=== PATIENT | male | born 1995 | race Caucasian/White ===

== ENCOUNTER 2018-08-24 18:40 | Emergency (ER) | payer BC ==
[2018-08-24] MEDS ORDERED: KETOROLAC 30 MG/1 ML SDV IVP ONE (19:19)
[2018-08-24] MEDS ORDERED: CEPHALEXIN 500 MG CAP PO ONE (19:29)
[2018-08-24] MEDS ORDERED: SULFAMETHOX/TMP 800/160 MG 1 TAB PO ONE (19:30)
[2018-08-24] MEDS ORDERED: ACETAMINOPHEN 500 MG TAB PO ONE (19:56)
[2018-08-24 20:07] VITALS: BP 139/84
--- NOTE | 2018-08-24 20:17 | EDPHY ---
HPI/HX/ROS/PE/MDM Narrative: CLINICAL IMPRESSION: Left buttock abscess with associated cellulitis ASSESSMENT/PLAN: Patient is a 22-year-old male with a history of recurrent buttock abscesses who presents for concerns of acute left buttock abscess. Patient is afebrile and not toxic appearing, mild distress. Physical exam reveals approximately 4 cm area of fluctuance on the inferior left buttock with approximately 8 cm of surrounding erythema and induration; rectal exam with no pain and no fluctuance. He had no constitutional symptoms to suggest systemic infection and he had no findings to suggest rectal abscess, fistula, pilonidal disease or necrotizing skin infection; history and physical examination is most consistent with left buttock abscess with associated cellulitis. The abscess was anesthetized, incised and drained as mentioned in the procedure note, a small wick left in place. He was given Toradol and after incision and drainage reported significant improvement of his discomfort. He is currently in town from [place] for an inpatient alcohol rehabilitation program. He will continue local wound care and warm compress, 1st dose of Keflex and Bactrim given in the emergency department which he will continue for the next 10 days. He was noted to have mildly elevated heart rate on arrival to the emergency department which I suspect is secondary to pain, he has had no constitutional symptoms or findings to suggest sepsis; heart rate normalized while in the emergency department. He is well established with his PCP however secondary to his inpatient rehabilitation is unable to get home. I have given him a surgical referral for Dr. Almodovar to be seen in the next 48 hr, if he is unable to get in to General surgery to be seen he will return to the emergency department for a wound check. On repeat examination and prior to discharge the patient is well-appearing, sitting in his bed in no acute distress. Return precautions discussed- he will return for fever, redness, swelling, warmth, or streaking around the wound, new lesions, extremity swelling, pain out of proportion or for any other new, worsening or worrisome symptoms. Patient verbalizes understanding and he is in agreement with plan. Case discussed with and patient seen by Dr. Levin. DIFFERENTIAL DX: Abscess, cellulitis, necrotizing skin infection, deep space infection, rectal abscess, fistula, pilonidal disease ED PROCEDURES: Procedure: Abscess drainage. The patient's abscess was located on the inferior left buttock. I obtained verbal consent from the patient to drain the abscess who was informed about the possibility of bleeding and pain. The abscess was incised with an 11 blade and approximately 15 cc of thick, tenacious, purulent drainage was expressed. I irrigated the wound and placed some packing. The patient tolerated the procedure well. The procedure was performed by myself. ED COURSE: 7:30 p.m.: Case discussed with Dr. Levin, she also evaluated this patient. 8:25 p.m.: On repeat examination the patient is sitting up in bed, reports that he is feeling so much better. Feels ready to be discharged home. CHIEF COMPLAINT: Left buttock pain and possible abscess HPI: The patient is a 22-year-old male with a history of her current buttock abscesses who presents with possible buttock abscess. Patient reports approximately 3 days ago he started to notice of small bump on his left buttock , this has significantly increased in size and has become much more painful. He states it feels very similar to when he has had abscesses in the past. He reports approximately 15-20 episodes of abscesses requiring incision and drainage. He has been seen by his primary care provider in [place], Dermatology and General surgery in [place]. It has been several months since his last episode. It has not been draining. He denies any fevers, chills , nausea, vomiting, abdominal pain, testicular pain or testicular swelling. Patient has had some diarrhea however denies any melena or hematochezia. He does not have any pain with defecation. No history of rectal abscess or fistula. PMH: Recurrent buttock abscess Pertinent Past Surgical History: Denies Family History: Not contributory Social History: Alcohol abuse, denies marijuana or cigarette smoking REVIEW OF SYSTEMS: All other systems negative Constitutional: No fever, no chills, appetite change. Eyes: No discharge, vision change ENT: No sore throat, congestion, ear pain. Cardiovascular: No chest pain, no palpitations. Respiratory: No cough, no shortness of breath. Gastrointestinal: Diarrhea. No abdominal pain, no vomiting. Genitourinary: No hematuria, dysuria, flank pain, pelvic pain Musculoskeletal: No back pain, joint swelling, joint pain, myalgias. Skin: Redness and swelling left buttock. No rashes, color change. Neurological: No headache, dizziness, weakness. PHYSICAL EXAM: General Appearance: Alert, oriented, appropriate, cooperative, mild distress, well hydrated, non-toxic appearing, VSS, no hypoxia. HEENT: TMs are clear bilaterally no perforation or FB, no injection, no evidence of serous or mucopurulent otitis. Oropharynx clear is no erythema or exudates, no tonsillar hypertrophy or asymmetry. Dentition without abnormality. Eyes: PERRLA, no acute vision change, nystagmus, swelling, discharge, pain or photosensitivity. Conjunctiva pink, no pallor or injection Neck: Supple, nontender, no lymphadenopathy, no midline pain, FROM, no meningismus. Respiratory: There are no retractions, lungs are clear to auscultation. Cardiac: Mild tachycardia on arrival, no murmurs or gallops. Gastrointestinal: Abdomen is soft, nontender, bowel sounds normal, no masses/ hernia, no rigidity, guarding or focal peritoneal findings. : Rectal exam performed with Silvia RN; rectal tone normal, no pain on digital examination. No areas of fluctuance. Approximately 3 cm lateral to the rectum, inferior left buttock reveals 4 cm area of fluctuance with approximately 8 cm of surrounding erythema and induration. Neurological: Alert and oriented x 3, CN 2-12 grossly intact, normal gait no ataxia, DTR's intact, normal sensation and strength Skin: Warm, dry. Musculoskeletal: Extremities are symmetrical, full range of motion, no tenderness, deformity, swelling, or erythema. Psychiatric: Patient is oriented X 3, there is no agitation. MEDICAL DECISION MAKING: Patient was seen with Dr. Levin. Diagnosis: Left buttock abscess with cellulitis. New, requires workup Summary: See Assessment and Plan for summary of ED visit Clinical lab tests: Not applicable. Independent visualization of images, tracing, or specimens: Not applicable. Decision to obtain medical records or history from someone other than the patient: No Review / Summarize previous medical records: No Discussed patient with another provider: Yes, Dr. Levin Patient Progress: Good, stable for discharge. (Magda Morgan) ED Course: This patient was seen and examined by me. He presents with a perirectal abscess. On exam, he has erythema, warmth and fluctuance of the left buttock. I agree with the assessment and plan. (Breanna Levin) - Data Points Medications Given: Discontinued Medications Acetaminophen (Tylenol) 1,000 mg PO EDNOW ONE Stop: 08/24/18 19:57 Last Admin: 08/24/18 20:02 Dose: 1,000 mg Cephalexin HCl (Keflex) 500 mg PO EDNOW ONE PRN Reason: Protocol Stop: 08/24/18 19:30 Last Admin: 08/24/18 19:33 Dose: 500 mg Ketorolac Tromethamine (Toradol) 30 mg IVP EDNOW ONE Stop: 08/24/18 19:20 Last Admin: 08/24/18 19:23 Dose: 30 mg Trimethoprim/Sulfamethoxazole (Bactrim Ds) 1 ea PO EDNOW ONE PRN Reason: Protocol Stop: 08/24/18 19:31 Last Admin: 08/24/18 19:33 Dose: 1 ea General Initial Vital Signs: Initial Vital Signs Temperature (C) 36.7 C 08/24/18 18:45 Heart Rate 107 H 08/24/18 18:45 Respiratory Rate 18 08/24/18 18:45 Blood Pressure 109/72 08/24/18 18:45 O2 Sat (%) 97 08/24/18 18:45 O2 Delivery Mode Room Air Allergies/Adverse Reactions: No Known Allergies Allergy (Unverified 08/24/18 18:51) Home Medications: Medication Instructions Recorded Cephalexin [Keflex (*)] 500 mg PO QID 10 Days cap 08/24/18 Escitalopram Oxalate [Lexapro] 10 mg PO 08/24/18 Naltrexone HCl [Revia 50mg (RX)] 50 mg PO 08/24/18 Sulfamethox/Tmp 800/160 mg 1 tab PO BID 10 Days tab 08/24/18 [Bactrim Ds] hydrOXYzine HCL [Vistaril 50MG 08/24/18 (RX)] Departure - Departure Disposition: Home, Routine, Self-Care Clinical Impression: Left buttock abscess, Cellulitis of buttock, left Condition: Good Instructions: Abscess (ED) Additional Instructions: DISCHARGE INSTRUCTIONS FROM YOUR DOCTOR Thank you for visiting our emergency department today. Please keep in mind that discharge from the emergency department does not mean that there is nothing wrong - it simply means that we have not identified an emergency condition that requires further evaluation or treatment in the hospital. You should always plan to follow up with primary care for re-evaluation of your condition in the next 2-3 days. If you have been referred to a specialist, please call as soon as possible (today or tomorrow) to schedule your follow up appointment at the appropriate time. Rest, drink plenty of fluids, eat healthy foods--all to help your immune system fight the infection. Keep the wound area clean and dry. Wear loose clothing. Change the dressings at least twice daily and/or when soiled. Try to leave the wick of the packing in place. Apply warm compresses as much as possible. Bactrim DS (antibiotic) 2 tablets twice daily for 10 days. Keflex (antibiotic) 500 mg four times daily for 10 days. Consume yogurt and take probiotics to help prevent diarrhea from the antibiotics. Tylenol 650 mg every 4-6 hours as needed for pain. Do not exceed 4000 mg in 24 hours. Ibuprofen 600 mg every 6-8 hours with food as needed for pain. Stop for stomach upset. Do not exceed 2400 mg in 24 hours. Do not take ibuprofen until tomorrow as he received Toradol in the emergency department. Schedule an appointment with a general surgery or return to the emergency department for wound check within 48 hours. Return for development of fever, chills, fatigue, malaise, vomiting, redness, swelling, warmth, or streaking around the wound, new lesions, arm pain, inability to move the arm, redness or swelling of a joint, numbness, tingling or weakness in the arm, upper arm swelling, coolness or discoloration of your fingers, chest or abdominal pain, throat tightness, facial swelling, difficulty breathing or swallowing, rash, or for any other new, worsening or worrisome symptoms. People present with illnesses and injuries in different ways, and it is always possible that we have missed something. You may always return for re-evaluation if symptoms worsen or if they are not improving or if you develop new/different symptoms. Again, thank you for choosing our emergency department. We hope that you feel better. Referrals: Beka Almodovar MD [Medical Doctor] - As per Instructions Prescriptions: Cephalexin [Keflex (*)] 500 mg PO QID 10 Days cap Sulfamethox/Tmp 800/160 mg [Bactrim Ds] 1 tab PO BID 10 Days tab
== END 2018-08-24 20:36 | disposition home or self-care (01) ==
PROC: 0H98XZZ Drainage of Buttock Skin, External Approach (ICD-10-PCS; principal; 2018-08-24)
DX: L02.31 Cutaneous abscess of buttock (principal); L03.317 Cellulitis of buttock
CPT/HCPCS: 96374; J1885